=== PATIENT | female | born 1945 | race Caucasian/White ===

== ENCOUNTER 2017-08-22 19:46 | Inpatient (IN) | payer MEDICARE, MEDICAID ==
[~2017-08-22] VITALS: Ht 165.1 cm; Wt 67.4 kg
[2017-08-22] MEDS ORDERED: PIPERACILLIN/TAZO/PMX 4.5GM 100 ML IVPB ONE (20:00)
[2017-08-22] MEDS ORDERED: ACETAMINOPHEN 500 MG TABLET PO ONE (20:00)
[2017-08-22] MEDS ORDERED: SODIUM CHLORIDE 0.9% 1,000ML IVBOLUS ONE ×2 (20:00)
[2017-08-22] MEDS ORDERED: VANCOMYCIN PER PHARMACY MC ONE (20:00)
[2017-08-22] MEDS ORDERED: PLEASE ENTER ALLERGIES MC SCH ×2 (20:30)
[2017-08-22] MEDS ORDERED: ACETAMINOPHEN 500 MG TABLET ONE (20:39)
[2017-08-22 20:40] LABS: HEMATOCRIT 34.1 % (34.6-47.8); HEMOGLOBIN 10.9 g/dL (11.7-16.4); WHITE BLOOD COUNT 18.1 x10^3/uL (3.4-10)
[2017-08-22 20:55] LABS: ASPARTATE AMINO TRANSFERASE 20 U/L (15-37); BLOOD UREA NITROGEN 57 mg/dL (7-18); DIFF TOTAL CELLS COUNTED 100 CELL DIFF
[2017-08-22 20:57] LABS: VERIFY COUNTS? YES
[2017-08-22] MEDS ORDERED: VANCOMYCIN 1,400 MG in SODIUM CHLORIDE 0.9% 250 ML IV ONE (21:00)
[2017-08-22] MEDS ORDERED: APIX5TAB PO (21:25)
[2017-08-22] MEDS ORDERED: INSU100C5 SQ-INSULIN (21:25)
[2017-08-22] MEDS ORDERED: FURO20TA3 PO (21:25)
[2017-08-22] MEDS ORDERED: THYR120T PO (21:25)
[2017-08-22] MEDS ORDERED: CAPT25TA3 PO (21:25)
[2017-08-22] MEDS ORDERED: PRED20TA PO (21:25)
[2017-08-22] MEDS ORDERED: GABA300C10 PO (21:25)
[2017-08-22] MEDS ORDERED: AMIO200T42 PO (21:25)
[2017-08-22] MEDS ORDERED: POTA10TA11 BC (21:25)
[2017-08-22] MEDS ORDERED: SODIUM BICARB 8.4%, 50ML SYRINGE IVPush ONE (21:30)
[2017-08-22] MEDS ORDERED: INSULIN REGULAR 100 UNITS/ML, 3ML VIAL IVPush ONE (21:30)
[2017-08-22] MEDS ORDERED: DEXTROSE 50%, 50ML SYRINGE IVPush ONE (21:30)
[2017-08-22] MEDS ORDERED: DEXTROSE 50%, 50ML SYRINGE ONE (21:34)
[2017-08-22] MEDS ORDERED: SODIUM BICARBONATE 1 MEQ/ML, 50ML VIAL IVPush ONE (22:00)
[2017-08-22] MEDS ORDERED: ONDANSETRON 2MG/ML, 2ML IVPush PRN (22:00)
[2017-08-22] MEDS ORDERED: ACETAMINOPHEN 325 MG TABLET PO PRN (22:00)
[2017-08-22] MEDS ORDERED: BISACODYL 10 MG SUPP PR PRN (22:00)
[2017-08-22] MEDS ORDERED: POLYETHYLENE GLYCOL 17 GM PACKET PO PRN (22:00)
[2017-08-22] MEDS ORDERED: VANCOMYCIN PER PHARMACY MC PRN (22:00)
[2017-08-22] MEDS ORDERED: PHARMACOKINETIC MONITORING MC PRN (23:30)
[2017-08-23] MEDS ORDERED: ALBUTEROL SULFATE 2.5 MG/3 ML ONE (00:05)
[2017-08-23] MEDS ORDERED: ALBUTEROL SULFATE 2.5 MG/3 ML NPPB PRN (00:30)
[2017-08-23 01:16] VITALS: BP 81/43
[2017-08-23 02:00] VITALS: BP 93/53
[2017-08-23] MEDS: GABAPENTIN 300 MG CAPSULE PO SCH ×5 (02:36→20:37)
[2017-08-23] MEDS: PIPERACILLIN/TAZO/PMX 3.375GM 50 ML IV SCH ×2 (02:36→08:27)
[2017-08-23] MEDS: APIXABAN 5 MG TABLET PO SCH ×4 (02:36→20:37)
[2017-08-23] MEDS: SODIUM CHLORIDE 0.9% 1,000 ML IV SCH ×3 (02:48→20:37)
[2017-08-23 03:00] VITALS: BP 90/51
[2017-08-23] MEDS: INSULIN ASPART 100 UNITS/ML, PEN SQ-INSULIN SCH ×5 (03:31→20:21)
[2017-08-23 06:05] LABS: HEMATOCRIT 30.2 % (34.6-47.8); HEMOGLOBIN 9.9 g/dL (11.7-16.4); WHITE BLOOD COUNT 18.5 x10^3/uL (3.4-10)
[2017-08-23 06:31] LABS: DIFF TOTAL CELLS COUNTED 100 CELL DIFF
[2017-08-23 06:35] VITALS: BP 86/45
[2017-08-23 06:37] LABS: VERIFY COUNTS? YES
[2017-08-23 06:40] LABS: ASPARTATE AMINO TRANSFERASE 24 U/L (15-37); BLOOD UREA NITROGEN 55 mg/dL (7-18)
[2017-08-23] MEDS ORDERED: ALBUTEROL SULFATE 2.5 MG/3 ML NPPB SCH (07:00)
[2017-08-23 08:15] VITALS: BP 81/38
[2017-08-23] MEDS: SENNA/DOCUSATE TABLET PO SCH ×2 (08:36→09:00)
[2017-08-23] MEDS: AMIODARONE 200 MG TABLET PO SCH ×2 (08:36→12:06)
[2017-08-23] MEDS: THYROID 30 MG TABLET PO SCH ×2 (08:37→12:06)
[2017-08-23] MEDS ORDERED: SODIUM CHLORIDE 0.9%, 500ML IVBOLUS ONE (09:00)
[2017-08-23 09:02] VITALS: BP 78/43
[2017-08-23] MEDS: ALBUTEROL SULFATE 2.5 MG/3 ML NPPB SCH ×2 (15:11→19:04)
[2017-08-23] MEDS: MEROPENEM 500 MG in SODIUM CHLORIDE 0.9% 100 ML IV SCH (16:19)
[2017-08-23] MEDS: VANCOMYCIN 50 MG/ML ORAL SUSP PO SCH ×2 (16:21→20:38)
[2017-08-23] MEDS ORDERED: VANCOMYCIN 1,200 MG in SODIUM CHLORIDE 0.9% 250 ML IV ONE (20:00)
[2017-08-23] MEDS ORDERED: SODIUM CHLORIDE 0.9% 1,000 ML IV ONE (22:00)
[2017-08-24] MEDS: VANCOMYCIN 50 MG/ML ORAL SUSP PO SCH ×4 (02:04→21:18)
[2017-08-24] MEDS: MEROPENEM 500 MG in SODIUM CHLORIDE 0.9% 100 ML IV SCH ×2 (02:04→16:23)
[2017-08-24] MEDS: SODIUM CHLORIDE 0.9% 1,000 ML IV SCH ×2 (04:38→12:39)
[2017-08-24 04:56] LABS: HEMATOCRIT 25.6 % (34.6-47.8); HEMOGLOBIN 8.3 g/dL (11.7-16.4); WHITE BLOOD COUNT 16.4 x10^3/uL (3.4-10)
[2017-08-24 05:00] VITALS: BP 106/51
[2017-08-24 05:00] LABS: ASPARTATE AMINO TRANSFERASE 17 U/L (15-37); BLOOD UREA NITROGEN 43 mg/dL (7-18)
[2017-08-24 05:36] LABS: DIFF TOTAL CELLS COUNTED 100 CELL DIFF
[2017-08-24 05:37] LABS: VERIFY COUNTS? YES
[2017-08-24] MEDS: INSULIN ASPART 100 UNITS/ML, PEN SQ-INSULIN SCH ×4 (07:45→20:13)
[2017-08-24] MEDS: AMIODARONE 200 MG TABLET PO SCH (08:57)
[2017-08-24] MEDS: GABAPENTIN 300 MG CAPSULE PO SCH ×3 (08:57→21:18)
[2017-08-24] MEDS: THYROID 30 MG TABLET PO SCH (08:57)
[2017-08-24] MEDS: SENNA/DOCUSATE TABLET PO SCH (08:57)
[2017-08-24] MEDS: APIXABAN 5 MG TABLET PO SCH ×2 (08:58→21:18)
[2017-08-24] MEDS: FLORASTOR 250 MG CAPSULE PO SCH ×2 (11:48→21:18)
[2017-08-24 19:00] VITALS: BP 149/70
[2017-08-25 00:48] VITALS: BP 144/68
[2017-08-25] MEDS: MEROPENEM 500 MG in SODIUM CHLORIDE 0.9% 100 ML IV SCH ×2 (03:35→15:00)
[2017-08-25] MEDS: VANCOMYCIN 50 MG/ML ORAL SUSP PO SCH ×3 (03:36→15:00)
[2017-08-25 05:41] LABS: HEMATOCRIT 28.9 % (34.6-47.8); HEMOGLOBIN 9.3 g/dL (11.7-16.4); WHITE BLOOD COUNT 18.6 x10^3/uL (3.4-10)
[2017-08-25 05:51] LABS: ASPARTATE AMINO TRANSFERASE 13 U/L (15-37); BLOOD UREA NITROGEN 40 mg/dL (7-18)
[2017-08-25 06:02] LABS: DIFF TOTAL CELLS COUNTED 100 CELL DIFF
[2017-08-25 06:04] LABS: ANISOCYTOSIS 1+; VERIFY COUNTS? YES
[2017-08-25 07:30] VITALS: BP 123/67
[2017-08-25] MEDS: APIXABAN 5 MG TABLET PO SCH (08:49)
[2017-08-25] MEDS: GABAPENTIN 300 MG CAPSULE PO SCH ×2 (08:49→15:00)
[2017-08-25] MEDS: INSULIN ASPART 100 UNITS/ML, PEN SQ-INSULIN SCH ×2 (08:49→12:46)
[2017-08-25] MEDS: FLORASTOR 250 MG CAPSULE PO SCH (08:50)
[2017-08-25] MEDS: THYROID 30 MG TABLET PO SCH (08:50)
[2017-08-25] MEDS: AMIODARONE 200 MG TABLET PO SCH (08:50)
[2017-08-25] MEDS ORDERED: SENNA/DOCUSATE TABLET PO SCH (09:00)
[2017-08-25] MEDS ORDERED: VANCOMYCIN 1,200 MG in SODIUM CHLORIDE 0.9% 250 ML IV SCH (10:00)
[2017-08-25 12:33] VITALS: BP 136/78
[2017-08-25] MEDS ORDERED: DEXTROSE 5% 0 ML ONE (17:17)
== END 2017-08-25 17:00 | disposition expired | DRG 871 ==
LOC: ED 21:53 → EDIP 22:00 → 4EST 23:07 → CCU 08-23 10:15 → 4EST 08-24 18:09
PROVIDERS: ADMIT Hospitalist; ATTEND Hospitalist
PROC: 0T9B70Z Drainage of Bladder with Drainage Device, Via Natural or Artificial Opening (ICD-10-PCS; principal; 2017-08-22)
DX: A41.9 Sepsis, unspecified organism (principal); E43 Unspecified severe protein-calorie malnutrition; N17.0 Acute kidney failure with tubular necrosis; R65.21 Severe sepsis with septic shock; G93.41 Metabolic encephalopathy; A04.7 Enterocolitis due to Clostridium difficile; I11.0 Hypertensive heart disease with heart failure; J15.9 Unspecified bacterial pneumonia; I50.9 Heart failure, unspecified; D68.69 Other thrombophilia; E87.1 Hypo-osmolality and hyponatremia; N39.0 Urinary tract infection, site not specified; J44.0 Chronic obstructive pulmonary disease with (acute) lower respiratory infection; E87.5 Hyperkalemia; D64.9 Anemia, unspecified; E03.9 Hypothyroidism, unspecified; I08.2 Rheumatic disorders of both aortic and tricuspid valves; I48.91 Unspecified atrial fibrillation; K44.9 Diaphragmatic hernia without obstruction or gangrene; Z66 Do not resuscitate; E11.9 Type 2 diabetes mellitus without complications; Z79.4 Long term (current) use of insulin; Z68.24 Body mass index [BMI] 24.0-24.9, adult
CPT/HCPCS: 36415; 71010; 76770; 80053; 80202; 81001; 82962; 83036; 83605; 83735; 84145; 84443; 85025; 85610; 87040; 87077; 87081; 87086; 87186; 87324; 87493; 93005; 93306; 94640; 96374; 96375; J1815; J2185; J2543; J3370; J7613; J7030; J7040; J7050